=== PATIENT | male | born 1970 | race Caucasian/White ===

== ENCOUNTER → 2017-09-11 | Outpatient (CLI) | payer OTHER ==
[~2017-09-11] MED LIST: ALBU8.5H12 IH; AMOX875T60 PO; HYDR-318; MON10 PO
--- NOTE | 2017-09-11 08:20 | RADIOLOGY IMAGING REPORT ---
FACILITY: [facility] PATIENT NAME: Jaswinder Barrett : 1970 MR: [id number] V: [id number] EXAM DATE: ORDERING PHYSICIAN: JULIEN REED TECHNOLOGIST: Location: [facility] [place] Patient: Jaswinder Barrett : 1970 Visit/Account:[id number] Date of Sevice: 09/11/2017 Technique: CERVICAL SPINE MIN 4 VIEW HISTORY: Neck pain, radicular symptoms Comparison studies: None FINDINGS: There is no acute fracture. The vertebral body heights, alignment and intervertebral disc s paces are maintained. The neural foramen are unremarkable; however, there is suboptimal evaluation of the lower foramina secondary to patient positioning. No prevertebral soft tissue swelling. IMPRESSION: 1. No acute osseous process. Report Dictated By: Doug Aguero DO at 09/11/2017 8:15 AM Report E-Signed By: Doug Aguero DO at 09/11/2017 8:16 AM WSN:[id number]
--- NOTE | 2017-09-11 08:24 | RADIOLOGY IMAGING REPORT ---
FACILITY: [facility] PATIENT NAME: Jaswinder Barrett : 1970 MR: [id number] V: [id number] EXAM DATE: ORDERING PHYSICIAN: JULIEN REED TECHNOLOGIST: Location: [facility] [place] Patient: Jaswinder Barrett : 1970 Visit/Account:[id number] Date of Sevice: 09/11/2017 Chest with lateral, two views. HISTORY: Neck pain, left shoulder and arm pain. COMPARISON: 09/03/2013. The heart and mediastinum are unremarkable. Pulmonary vessels are unremarkable. The lungs are clear . The pleural surfaces are unremarkable. No pneumothorax. The bones are unremarkable. IMPRESSION: No evidence of acute cardiopulmonary disease. Report Dictated By: Alfred Jackson MD at 09/11/2017 8:16 AM Report E-Signed By: Alfred Jackson MD at 09/11/2017 8:20 AM WSN:[email or web address]
--- NOTE | 2017-09-11 08:27 | RADIOLOGY IMAGING REPORT ---
FACILITY: [facility] - [place] PATIENT NAME: Jaswinder Barrett : 1970 MR: [id number] V: [id number] EXAM DATE: ORDERING PHYSICIAN: JULIEN REED TECHNOLOGIST: Location: [facility] Patient: Jaswinder Barrett : 1970 Visit/Account:[id number] Date of Sevice: 09/11/2017 Bilateral rib detail, four views. HISTORY: Neck and left shoulder pain. COMPARISON: None. The heart and mediastinum are unremarkable. Pulmonary vessels are unremarkable. The lungs are clear . The pleural surfaces are unremarkable. No pneumothorax. The ribs are unremarkable. Mild degenerat rosa changes are present in the spine and shoulders. IMPRESSION: Negative ribs. Report Dictated By: Alfred Jackson MD at 09/11/2017 8:21 AM Report E-Signed By: Alfred Jackson MD at 09/11/2017 8:24 AM WSN:[email or web address]
== END ==
LOC: RAD 07:15
PROVIDERS: ATTEND Family Medicine
DX: M54.2 Cervicalgia (principal); M54.10 Radiculopathy, site unspecified; R09.89 Other specified symptoms and signs involving the circulatory and respiratory systems
CPT/HCPCS: 71046; 71111; 72050